=== PATIENT | male | born 1990 | race Caucasian/White ===

== ENCOUNTER 2016-11-15 23:31 | Emergency (ER) | payer OTHER ==
--- NOTE | 2016-11-16 01:30 | RADIOLOGY REPORT (SQ) ---
EXAM DESCRIPTION: WRIST RIGHT 3 VIEWS COMPLETED DATE/TIME: 11/16/2016 1:02 am REASON FOR STUDY: injury COMPARISON: None. NUMBER OF VIEWS: Three views. TECHNIQUE: AP, lateral, and oblique radiographic images acquired of the right wrist. LIMITATIONS: None. FINDINGS: MINERALIZATION: Normal. BONES: Nondisplaced comminuted fracture -fragmentation of the triquetrum. Likely developmental nondi splaced lucency of the radial styloid ; cannot exclude fracture. Associated swelling. SOFT TISSUES: As above. No foreign body. OTHER: No other significant finding. IMPRESSION: Possible right triquetral fracture. Likely developmental nondisplaced lucency of the ra dial styloid ; cannot fully exclude fracture. Consider further evaluation with CT of the right wrist and/or 7-10 day CR surveillance. TECHNICAL DOCUMENTATION: JOB ID: [id number] [employer]- All Rights Reserved
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
[2016-11-16 02:52] VITALS: BP 120/77
== END 2016-11-16 02:50 | disposition home or self-care (01) ==
LOC: ER 23:31
DX: S62.114A Nondisplaced fracture of triquetrum [cuneiform] bone, right wrist, initial encounter for closed fracture (principal); M25.531 Pain in right wrist; V29.9XXA Motorcycle rider (driver) (passenger) injured in unspecified traffic accident, initial encounter
CPT/HCPCS: 99283; 71010; 73110; L3908